=== PATIENT | male | born 1970 | race Caucasian/White ===

== ENCOUNTER 2017-03-16 08:59 | Outpatient (CLI) | payer OTHER ==
--- NOTE | 2017-03-19 12:10 | OP Clinic Progress Note ---
REASON FOR VISIT: Taco Rodriguez returns for follow up on psoriasis and psoriatic arthritis. Since I last saw him in August, he had 1 flare involving the left knee and some worsening of his skin disease over his right ankle and hands. Presently, he is doing better and he has no significant joint swelling, warmth, or tenderness. No morning stiffness. No spinal issues. He has had no red painful eye. His skin, however, remains active. PRESENT MEDICATIONS: 1. Humira 40 mg subcutaneous weekly. 2. Omeprazole. 3. Naprosyn. 4. Ultravate. 5. Desonide. REVIEW OF SYSTEMS: No fevers, chills, sweats, chest pain, shortness of breath, cough, wheezing, nausea, vomiting, or diarrhea. PHYSICAL EXAMINATION: VITAL SIGNS: T: 97.4, R: 18, heart rate: 58, BP: 150/90. Weight: 208. Height: 5 feet 10 inches. HEENT: Sclerae are anicteric. Conjunctivae are pink. No stomatitis or glossitis. LUNGS: Clear bilaterally with no crackles or wheezing. HEART: Regular rhythm. ABDOMEN: Soft and nontender. VASCULAR: No edema or cyanosis. PERIPHERAL JOINTS: No synovitis at the DIPs, PIPs, MCPs, wrists, elbows, shoulders, hips, knees, ankles, and feet. He does have psoriasis of his right ankle, as well as over his MCP joints. IMPRESSION: 1. Psoriasis, active. 2. Psoriatic arthritis, stable. 3. High risk drug. No evidence of drug toxicity. He had labs in August, which he will send to me. PLAN: I will otherwise see him in 6 months. [facility]
== END 2017-03-16 09:34 ==
LOC: RHEU 08:59
PROVIDERS: ATTEND Internal Medicine
DX: L40.50 Arthropathic psoriasis, unspecified (principal); Z79.899 Other long term (current) drug therapy
CPT/HCPCS: 99214

== ENCOUNTER 2018-03-15 10:39 | Outpatient (CLI) | payer OTHER ==
--- NOTE | 2018-03-21 07:44 | OP Clinic Progress Note ---
REASON FOR VISIT: Taco Rodriguez returns for follow up on psoriasis and psoriatic arthritis. At his last visit, we stopped his Humira and started Cosentyx 300 mg subcutaneous monthly. She has noted a vast improvement. His skin has cleared. His low back pain and stiffness has resolved. He still has some difficulty with his hands but otherwise feels a significant improvement. He has noted also that his knees are no longer painful or swollen. PRESENT MEDICATIONS: 1. Cosentyx 300 mg subcutaneous monthly. 2. Omeprazole. 3. Naprosyn as needed. 4. Ultravate. 5. Desonide as needed. Prior treatment failures have been methotrexate, Enbrel, and Humira. REVIEW OF SYSTEMS: No fevers, chills, sweats, chest pain, shortness of breath, cough, wheezing, nausea, vomiting, or diarrhea. PHYSICAL EXAMINATION: VITAL SIGNS: Height: 5 feet 10 inches. Weight: 198 pounds. T: 97.8, R: 20, heart rate 68, BP: 150/80. HEENT: Sclerae are anicteric. Conjunctivae are pink. No stomatitis or glossitis. LUNGS: Clear with no crackles or wheezing. HEART: Regular rate and rhythm. ABDOMEN: Soft and nontender. VASCULAR: No edema or cyanosis. SKIN: No rashes. NAILS: No pitting. PERIPHERAL JOINTS: Right 4th PIP is swollen and tender. Left MCP #2 is swollen and tender. Otherwise, no evidence of tenosynovitis. Wrists, elbows, shoulder, hips, knees, ankles, and feet are unremarkable. IMPRESSION: Psoriasis and psoriatic arthritis. Partial response to Cosentyx. I want to give him more time. PLAN: I will see him back in 6 months. He is to call and come in sooner if he should worsen or fail to improve. Thank you very much. Best regards, ENDER
== END 2018-03-15 12:19 ==
LOC: RHEU 10:39
PROVIDERS: ATTEND Internal Medicine
DX: L40.50 Arthropathic psoriasis, unspecified (principal); L40.9 Psoriasis, unspecified
CPT/HCPCS: 99213; 99214

== ENCOUNTER 2018-09-20 09:04 | Outpatient (CLI) | payer OTHER ==
--- NOTE | 2018-10-02 09:34 | OP Clinic Progress Note ---
REASON FOR VISIT: Taco Rodriguez returns for follow up of psoriasis and psoriatic arthritis. He is doing quite well on Cosentyx except for his right 4th PIP joint which remains swollen and tender. Previous treatments he has tried and failed were methotrexate, Enbrel, and Humira. Rest of the systems reviewed, no fevers, chills, sweats, chest pain, shortness of breath, cough, wheezing, nausea, or vomiting. PHYSICAL EXAMINATION: VITAL SIGNS: Pain is 1 to 2 over 10 in the hands. BP: 150/93, P: 75, R: 18, T: 97.8. HEENT: Unremarkable. LUNGS: Clear. HEART: Regular rate and rhythm. SKIN AND NAIL EXAM: Shows no skin rashes or lesions. JOINTS: Remarkable for swelling of right PIP #4 with some tenderness. IMPRESSION: Psoriasis and psoriatic arthritis. PLAN: 1. Continue Cosentyx and this may deem a letter of medical necessity. 2. For his 4th PIP swelling, I am putting him on Naprosyn 375 mg twice a day. 3. I will see him back in 6 months. [facility]
== END 2018-09-20 09:08 ==
LOC: RHEU 09:04
PROVIDERS: ATTEND Internal Medicine
DX: L40.9 Psoriasis, unspecified (principal); L40.59 Other psoriatic arthropathy
CPT/HCPCS: 99212